=== PATIENT | female | born 1955 | race Caucasian/White ===

== ENCOUNTER 2019-05-13 11:06 | Outpatient (REF) | payer MEDICARE, BC, SELFPAY ==
[2019-05-13 21:44] LABS: Anion Gap 12.6 mmol/L (3-11); BUN 13 mg/dL (7-18); CO2 25.4 mmol/L (21.0-32.0); CREATININE 0.86 mg/dL (0.55-1.02); Calcium 8.9 mg/dL (8.5-10.1); Calculated LDL 122; Chloride 103 mmol/L (98-107); Cholesterol 198 mg/dL (50-200); Glucose 88 mg/dL (70-100); HDL Cholesterol 63 mg/dL (40-60); Sodium 141 mmol/L (136-145); Triglyceride 69 mg/dL (30-150)
== END 2019-05-13 11:26 ==
LOC: NCHCN 11:06
PROVIDERS: PCP Internal Medicine; Visit Provider Family Medicine
DX: I10 Essential (primary) hypertension (principal); E78.41 Elevated Lipoprotein(a)
CPT/HCPCS: 80048; 80061; 83721

== ENCOUNTER 2020-09-01 11:39 | Outpatient (REF) | payer MEDICARE, BC, SELFPAY ==
[2020-09-01 20:59] LABS: HCT 44.3 % (36.0-46.0); HGB 14.9 g/dL (11.2-15.7); MCH 33.6 pg (27.0-33.0); MCHC 33.6 % (32.0-36.0); MCV 99.8 fL (80-95); MPV 10.7 fL (8.0-11.0); Platelet Count 358 10^3/uL (130-400); RBC 4.44 10^6/uL (3.93-5.22); RDW 13.2 % (11.7-14.6); RDW-SD 48.7 fL; WBC 6.96 10^3/uL (4.4-10.8)
[2020-09-01 21:26] LABS: Hemoglobin A1C 5.9 % (<5.7)
[2020-09-01 21:33] LABS: ALT 54 U/L (14-59); AST 34 U/L (15-37); Albumin 3.9 g/dL (3.4-5.0); Alkaline Phosphatase 104 U/L (46-116); Anion Gap 7.5 mmol/L (3-11); BUN 15 mg/dL (7-18); CO2 28.5 mmol/L (21.0-32.0); CREATININE 0.72 mg/dL (0.55-1.02); Calcium 9.2 mg/dL (8.5-10.1); Calculated LDL 135 mg/dL (<100); Chloride 98 mmol/L (98-107); Cholesterol 228 mg/dL (<200); Glucose 118 mg/dL (74-106); HDL Cholesterol 71 mg/dL (40-60); Potassium 3.6 mmol/L (3.5-5.1); Sodium 134 mmol/L (136-145); Total Protein 7.4 g/dL (6.4-8.2); Triglyceride 114 mg/dL (<150)
[2020-09-01 21:56] LABS: Bilirubin, Total 0.4 mg/dL (0.2-1.0)
== END 2020-09-01 11:59 ==
LOC: NCHCN 11:39
PROVIDERS: PCP Internal Medicine; Visit Provider Family Medicine
DX: R73.03 Prediabetes (principal); I10 Essential (primary) hypertension; E78.41 Elevated Lipoprotein(a)
CPT/HCPCS: 80053; 80061; 85027; 83036

== ENCOUNTER 2020-09-28 18:28 | Outpatient (REF) | payer MEDICARE, BC, SELFPAY ==
[2020-10-03 13:44] LABS: Patient Race White; SARS-CoV-2 RNA Undetected (Undetected); SARS-CoV-2 Specimen Source Nasal
== END 2020-09-28 18:48 ==
LOC: NCHCN 18:28
PROVIDERS: PCP Internal Medicine; Visit Provider Family Medicine
DX: Z20.828 Contact with and (suspected) exposure to other viral communicable diseases (principal)
CPT/HCPCS: U0003

== ENCOUNTER 2021-08-29 08:21 | Outpatient (REF) | payer MEDICARE, BC, SELFPAY ==
[2021-08-30 10:50] LABS: COVID-19 RT-PCR UVMMC Result Negative (Negative)
== END 2021-08-29 08:22 | disposition home or self-care (01) ==
LOC: NCHCN 08:21
PROVIDERS: PCP Internal Medicine; Visit Provider Family Medicine
DX: Z20.822 Contact with and (suspected) exposure to COVID-19 (principal)
CPT/HCPCS: U0003; U0005

== ENCOUNTER 2021-09-14 12:01 | Outpatient (REF) | payer MEDICARE, BC, SELFPAY ==
[2021-09-14 14:33] LABS: ALT 57 U/L (14-59); AST 30 U/L (15-37); Albumin 3.7 g/dL (3.4-5.0); Alkaline Phosphatase 76 U/L (46-116); Anion Gap 8.9 mmol/L (3-11); BUN 14 mg/dL (7-18); Bilirubin, Total 0.5 mg/dL (0.2-1.0); CO2 30.1 mmol/L (21.0-32.0); CREATININE 0.8 mg/dL (0.55-1.02); Calcium 8.8 mg/dL (8.5-10.1); Calculated LDL 128 mg/dL (<100); Chloride 101 mmol/L (98-107); Cholesterol 207 mg/dL (<200); Glucose 103 mg/dL (74-106); HDL Cholesterol 63 mg/dL (40-60); Potassium 3.8 mmol/L (3.5-5.1); Sodium 140 mmol/L (136-145); Triglyceride 82 mg/dL (<150)
== END 2021-09-14 12:02 | disposition home or self-care (01) ==
LOC: NCHCN 12:01
PROVIDERS: PCP Internal Medicine; Visit Provider Family Medicine
DX: I10 Essential (primary) hypertension (principal); E78.49 Other hyperlipidemia
CPT/HCPCS: 80053; 80061

== ENCOUNTER 2022-07-17 13:27 | Outpatient (REF) | payer MEDICARE, SELFPAY ==
[2022-07-17 21:39] LABS: HCT 42.6 % (36.0-46.0); HGB 14.5 g/dL (11.2-15.7); MCH 33.3 pg (27.0-33.0); MCV 98 fL (80-95); MPV 11.1 fL (8.0-11.0); Platelet Count 314 10^3/uL (130-400); RBC 4.36 10^6/uL (3.93-5.22); RDW 13.6 % (11.7-14.6); RDW-SD 49.1 fL; WBC 8.05 10^3/uL (4.4-10.8)
[2022-07-17 21:42] LABS: ESR 21 mm/hr (0-30)
[2022-07-17 22:02] LABS: ALT 55 U/L (14-59); AST 35 U/L (15-37); Albumin 3.8 g/dL (3.4-5.0); Alkaline Phosphatase 76 U/L (46-116); Anion Gap 8.9 mmol/L (3-11); BUN 15 mg/dL (7-18); Bilirubin, Total 0.4 mg/dL (0.2-1.0); C-Reactive Protein 0.18 mg/dL (0.0-0.3); CO2 28.1 mmol/L (21.0-32.0); CREATININE 1.1 mg/dL (0.55-1.02); Chloride 103 mmol/L (98-107); Estimated GFR 49.25 (mL/min/1.73m2); Glucose 137 mg/dL (74-106); INR 0.9 (0.9-1.1); Potassium 3.7 mmol/L (3.5-5.1); Prothrombin Time 9.3 sec (9.3-11.0); Sodium 140 mmol/L (136-145); TSH (W/Ref FT4) 1.23 uIU/mL (0.36-3.74); Total Protein 7.7 g/dL (6.4-8.2)
== END 2022-07-17 13:28 | disposition home or self-care (01) ==
LOC: NCHCN 13:27
PROVIDERS: PCP Internal Medicine; Visit Provider Family Medicine
DX: R53.83 Other fatigue (principal); R06.09 Other forms of dyspnea
CPT/HCPCS: 80053; 85027; 85652; 84443; 85610; 86140

== ENCOUNTER 2023-04-14 15:31 | Outpatient (REF) | payer MEDICARE, SELFPAY ==
[2023-04-14 15:05] LABS: HGB 14.8 g/dL (11.2-15.7); MCH 33.3 pg (27.0-33.0); MCHC 34.4 % (32.0-36.0); MCV 97 fL (80-95); MPV 10.8 fL (8.0-11.0); Platelet Count 313 10^3/uL (130-400); RBC 4.44 10^6/uL (3.93-5.22); RDW 13.3 % (11.7-14.6); WBC 5.94 10^3/uL (4.4-10.8)
[2023-04-14 15:20] LABS: ALT 45 U/L (14-59); AST 35 U/L (15-37); Albumin 3.8 g/dL (3.4-5.0); Alkaline Phosphatase 71 U/L (46-116); Anion Gap 6.9 mmol/L (3-11); BUN 19 mg/dL (7-18); Bilirubin, Total 0.6 mg/dL (0.2-1.0); CO2 29.1 mmol/L (21.0-32.0); CREATININE 0.8 mg/dL (0.55-1.02); Calcium 9.3 mg/dL (8.5-10.1); Chloride 99 mmol/L (98-107); Estimated GFR 79.71 (mL/min/1.73m2); Glucose 111 mg/dL (74-106); Potassium 3.4 mmol/L (3.5-5.1); Sodium 135 mmol/L (136-145); Total Protein 7.7 g/dL (6.4-8.2)
[2023-04-14 15:26] LABS: Hemoglobin A1C 5.9 % (<5.7)
== END 2023-04-14 15:32 | disposition home or self-care (01) ==
LOC: NCHCN 15:31
PROVIDERS: PCP Internal Medicine; Visit Provider Family Medicine
DX: R73.03 Prediabetes (principal); F10.10 Alcohol abuse, uncomplicated
CPT/HCPCS: 80053; 85027; 83036

== ENCOUNTER 2023-11-21 20:41 | Outpatient (REF) | payer MEDICARE, SELFPAY ==
[2023-11-21 20:52] LABS: HCT 44.1 % (36.0-46.0); HGB 14.9 g/dL (11.2-15.7); MCH 32.8 pg (27.0-33.0); MCHC 33.8 % (32.0-36.0); MCV 97 fL (80-95); MPV 10.7 fL (8.0-11.0); Platelet Count 283 10^3/uL (130-400); RBC 4.54 10^6/uL (3.93-5.22); RDW 13.3 % (11.7-14.6); RDW-SD 47.3 fL; WBC 5.99 10^3/uL (4.4-10.8)
[2023-11-21 21:13] LABS: ALT 46 U/L (14-59); AST 32 U/L (15-37); Albumin 3.8 g/dL (3.4-5.0); Alkaline Phosphatase 78 U/L (46-116); Anion Gap 9.2 mmol/L (3-11); BUN 16 mg/dL (7-18); Bilirubin, Total 0.4 mg/dL (0.2-1.0); CO2 26.8 mmol/L (21.0-32.0); CREATININE 0.9 mg/dL (0.55-1.02); Chloride 103 mmol/L (98-107); Estimated GFR 68.77 (mL/min/1.73m2); Glucose 107 mg/dL (74-106); Lipase 39 U/L (16-77); Potassium 3.9 mmol/L (3.5-5.1); Sodium 139 mmol/L (136-145); Total Protein 7.6 g/dL (6.4-8.2)
== END 2023-11-21 20:42 | disposition home or self-care (01) ==
LOC: NCHCN 20:41
PROVIDERS: PCP Internal Medicine; Visit Provider Family Medicine
DX: R10.13 Epigastric pain (principal); R19.7 Diarrhea, unspecified
CPT/HCPCS: 80053; 83690; 85027

== ENCOUNTER 2023-11-26 16:45 | Outpatient (REF) | payer MEDICARE, SELFPAY ==
[2023-12-02 13:10] LABS: Helicobacter pylori Ag, Feces Negative (Negative)
== END 2023-11-26 16:46 | disposition home or self-care (01) ==
LOC: NCHCN 16:45
PROVIDERS: PCP Internal Medicine; Visit Provider Family Medicine
DX: R10.13 Epigastric pain (principal); R19.7 Diarrhea, unspecified
CPT/HCPCS: 87338

== ENCOUNTER 2024-10-25 16:06 | Outpatient (REF) | payer MEDICARE, SELFPAY | END 2024-10-25 16:07 | disposition home or self-care (01) | LOC: NCHCN 16:06 | PROVIDERS: PCP Internal Medicine; Visit Provider Family Medicine | DX: R68.89 Other general symptoms and signs (principal) | CPT/HCPCS: 84443 ==

== ENCOUNTER 2025-04-27 15:57 | Outpatient (REF) | payer MEDICARE, SELFPAY ==
[2025-04-27 21:29] LABS: HCT 44.4 % (36.0-46.0); MCH 32.7 pg (27.0-33.0); MCHC 33.8 % (32.0-36.0); MCV 97 fL (80-95); MPV 11.2 fL (8.0-11.0); Platelet Count 291 10^3/uL (130-400); RBC 4.59 10^6/uL (3.93-5.22); RDW 14.2 % (11.7-14.6); WBC 7.84 10^3/uL (4.4-10.8)
[2025-04-27 22:09] LABS: ALT 66 U/L (14-59); AST 37 U/L (15-37); Albumin 3.9 g/dL (3.4-5.0); Alkaline Phosphatase 79 U/L (46-116); Anion Gap 8.3 mmol/L (3-11); BUN 13 mg/dL (7-18); Bilirubin, Total 0.6 mg/dL (0.2-1.0); CO2 29.7 mmol/L (21.0-32.0); CREATININE 0.7 mg/dL (0.55-1.02); Calcium 9.4 mg/dL (8.5-10.1); Chloride 103 mmol/L (98-107); Estimated GFR 91.83 (mL/min/1.73m2); Glucose 103 mg/dL (74-106); Potassium 3.7 mmol/L (3.5-5.1); Sodium 141 mmol/L (136-145); Total Protein 7.3 g/dL (6.4-8.2); Vitamin B12 215 pg/mL (193-986); Vitamin D 25 Total 34 ng/mL (30-100)
[2025-04-28 01:29] LABS: Folate 8.2 ng/mL (8.6-20.0)
== END 2025-04-27 15:58 | disposition home or self-care (01) ==
LOC: NCHCN 15:57
PROVIDERS: PCP Internal Medicine; Visit Provider Family Medicine
DX: K70.0 Alcoholic fatty liver (principal)
CPT/HCPCS: 80053; 82306; 85027; 82607; 82746

== ENCOUNTER 2025-08-02 17:50 | Outpatient (REF) | payer MEDICARE, SELFPAY ==
[2025-08-02 18:54] LABS: HCT 41.1 % (36.0-46.0); HGB 13.9 g/dL (11.2-15.7); MCH 31.8 pg (27.0-33.0); MCHC 33.8 % (32.0-36.0); MCV 94 fL (80-95); MPV 11.4 fL (8.0-11.0); Platelet Count 280 10^3/uL (130-400); RBC 4.37 10^6/uL (3.93-5.22); RDW 12.6 % (11.7-14.6); RDW-SD 43.8 fL; WBC 6.04 10^3/uL (4.4-10.8)
[2025-08-02 19:08] LABS: C-Reactive Protein < 0.50 mg/dL (<or=0.5)
== END 2025-08-02 17:51 | disposition home or self-care (01) ==
LOC: LBN 17:50
PROVIDERS: PCP Internal Medicine; Referring Provider Family Medicine; Visit Provider Internal Medicine Gastroenterology
DX: R19.7 Diarrhea, unspecified (principal)
CPT/HCPCS: 82784; 85027; 86140